=== PATIENT | female | born 1990 | race Caucasian/White ===

== ENCOUNTER → 2017-06-17 | Outpatient (CLI) | payer OTHER ==
--- NOTE | 2017-06-17 11:09 | REP ---
Gastric emptying nuclear scintigraphy: History: Vomiting with nausea. Technique: 1.03 mCi of technetium-99m sulfur colloid was ingested in two scrambled eggs and 6 ounces of water and sequential anterior and posterior images are acquired for an 89-minute imaging observation period. Regions of interest are drawn around the stomach to plot gastric emptying. Scintigraphic findings: Expected T1/2 is 90 minutes. 27 % emptying is observed in this patient during the 89-minute imaging observation period, for a calculated T1/2 in this patient of 178 minutes. Impression: Delayed gastric emptying. Signed by Samir Mc MD 06/17/2017 11:01 A
== END ==
LOC: M RAD 08:08
PROVIDERS: ATTEND Internal Medicine
DX: K30 Functional dyspepsia (principal)
CPT/HCPCS: 78264; A9541